=== PATIENT | male | born 1995 | race African-American/Black ===

== ENCOUNTER 2017-04-27 13:26 | Emergency (ER) | payer SELFPAY ==
[2017-04-27] MEDS ORDERED: Ketorolac Tromethamine 30 MG/ML VIAL ONE (13:45)
[2017-04-27] MEDS ORDERED: Ondansetron ODT 4 MG TAB ONE (13:46)
== END 2017-04-27 14:04 | disposition home or self-care (01) ==
LOC: NAV ERS 13:26
DX: G43.909 Migraine, unspecified, not intractable, without status migrainosus (principal); J45.909 Unspecified asthma, uncomplicated; Z77.22 Contact with and (suspected) exposure to environmental tobacco smoke (acute) (chronic)
CPT/HCPCS: 96372; J1885; Q0162

== ENCOUNTER 2018-07-24 12:56 | Emergency (ER) | payer SELFPAY ==
[2018-07-24 13:23] LABS: #Basophils 0.1 thou/uL (0.0-0.2); #Lymphocytes 1.1 thou/uL (1.20-3.40); #Monocytes 0.3 thou/uL (0.11-0.59); #Neutrophils 1.4 thou/uL (1.40-6.50); %Basophils 1.9 % (0.0-1.0); %Eosinophils 1.7 % (0.0-10.0); %Monocytes 8.9 % (0.0-10.0); %Neutrophils 49.5 % (42.0-75.0); Hemoglobin 14.2 g/dL (14.0-18.0); Mean Corpuscular HGB CONC 30.4 g/dL (32.0-36.0); Mean Corpuscular Hemoglobin 26.4 pg (27.0-31.0); Mean Corpuscular Volume 86.8 fL (78.0-98.0); Mean Platelet Volume 6.5 fL (7.4-10.4); Platelet Count 183 thou/uL (130-400); RBC Distribution Width 12.8 % (11.5-14.5); Red Blood Cell (RBC) Count 5.39 mill/uL (4.70-6.10); White Blood Cell (WBC) Count 2.9 thou/uL (4.8-10.8)
[2018-07-24 13:31] LABS: Amphetamine Not Detected (NotDetected); Barbiturates Screen Not Detected (NotDetected); Benzodiazepine Screen Not Detected (NotDetected); Cocaine Metabolite Screen Not Detected (NotDetected); Medtox Control Line Valid? VALID (VALID); Methadone Not Detected (NotDetected); Methamphetamine Not Detected (NotDetected); Opiate Screen Not Detected (NotDetected); Oxycodone Screen Not Detected (NotDetected); Phencyclidine (PCP) Not Detected (NotDetected); THC/Cannabinoid Screen Not Detected (NotDetected); Tricyclic Screen Not Detected (NotDetected)
[2018-07-24 13:48] LABS: ALT (SGPT) 12 U/L (8-55); AST (SGOT) 18 U/L (5-34); Albumin 4.4 g/dL (3.5-5.0); Alkaline Phosphatase 87 U/L (40-150); Anion Gap 15 mmol/L (10-20); BUN (Urea Nitrogen) 9 mg/dL (8.9-20.6); Bilirubin, Total 0.8 mg/dL (0.2-1.2); Calc. Creatinine Clearance 0 mL/min (70-130); Calcium 9.4 mg/dL (7.8-10.44); Carbon Dioxide 24 mmol/L (22-29); Chloride 106 mmol/L (98-107); Estimated GFR-MDRD Greater than 90; Globulin 2.8 g/dL (2.4-3.5); Glucose 89 mg/dL (70-105); Lipase 10 U/L (8-78); Potassium 3.8 mmol/L (3.5-5.1); Protein, Total 7.2 g/dL (6.0-8.3); Sodium 141 mmol/L (136-145)
--- NOTE | 2018-07-24 14:15 | RAD ---
CHEST 2 VIEWS: HISTORY: Uncontrollable shaking. COMPARISON: 04/02/2007, 12/10/2010. FINDINGS: Normal cardiac silhouette. Lungs and pleural spaces are clear. No pneumothorax or osseous abnormali ties. IMPRESSION: No acute cardiopulmonary process. POS: OFF
--- NOTE | 2018-07-24 14:32 | CT ---
BRAIN CT WITHOUT IV CONTRAST: HISTORY: Uncontrolled shaking. The patient does not remember what precipitated the event. FINDINGS: No focal mass or midline shift. No intra- or extraaxial hemorrhage. Sinuses and mastoids are clear of acute process. IMPRESSION: No significant acute intracranial process. No mass or bleed. POS: TPC
== END 2018-07-24 14:56 | disposition home or self-care (01) ==
LOC: NAV ERS 12:56
DX: R25.1 Tremor, unspecified (principal); F41.1 Generalized anxiety disorder; J45.909 Unspecified asthma, uncomplicated; Z77.22 Contact with and (suspected) exposure to environmental tobacco smoke (acute) (chronic)
CPT/HCPCS: 70450; 71046; 80053; 80306; 83690; 84443; 85025

== ENCOUNTER 2018-10-08 09:26 | Emergency (ER) | payer SELFPAY ==
[2018-10-08] MEDS ORDERED: Acetaminophen 500 MG TAB ONE (09:54)
== END 2018-10-08 10:00 | disposition home or self-care (01) ==
LOC: NAV ERS 09:26
DX: R51 Headache (principal); J45.909 Unspecified asthma, uncomplicated; F17.210 Nicotine dependence, cigarettes, uncomplicated
CPT/HCPCS: 99281

== ENCOUNTER 2018-12-11 11:00 | Emergency (ER) | payer SELFPAY ==
[2018-12-11] MEDS ORDERED: Sodium Chloride 0.9% 1,000 ML ONE (11:21)
[2018-12-11] MEDS ORDERED: Ketorolac Tromethamine 30 MG/ML VIAL ONE (11:21)
[2018-12-11] MEDS ORDERED: diphenhydrAMINE 50 MG/ML VIAL ONE (11:21)
[2018-12-11] MEDS ORDERED: Metoclopramide HCl 10 MG/2 ML VIAL ONE (11:21)
== END 2018-12-11 12:19 | disposition home or self-care (01) ==
LOC: NAV ERS 11:00
DX: R51 Headache (principal); J45.909 Unspecified asthma, uncomplicated; F17.210 Nicotine dependence, cigarettes, uncomplicated
CPT/HCPCS: 96361; 96374; 96375; J1200; J1885; J2765; J7050

== ENCOUNTER 2019-01-08 19:13 | Emergency (ER) | payer SELFPAY | END 2019-01-08 19:54 | disposition home or self-care (01) | LOC: NAV ERS 19:13 | DX: A60.01 Herpesviral infection of penis (principal); G43.909 Migraine, unspecified, not intractable, without status migrainosus; J45.909 Unspecified asthma, uncomplicated; F17.210 Nicotine dependence, cigarettes, uncomplicated | CPT/HCPCS: 99282 ==

== ENCOUNTER 2020-03-10 11:57 | Emergency (ER) | payer SELFPAY ==
[2020-03-10] MEDS ORDERED: Ondansetron ODT 4 MG TAB ONE (12:18)
--- NOTE | 2020-03-10 12:56 | CT ---
Exam: Head CT without contrast HISTORY: Headache. Nausea. Vomiting. Altered mental status. COMPARISON: 10/08/2019 FINDINGS: Hemorrhage: No intraparenchymal hemorrhage or extra-axial hematoma. Brain parenchyma: Cortical belcher-white matter differentiation is preserved. No mass effect or midline shift. Basilar cisterns are patent. Ventricular system: Ventricles and sulci are patent and symmetric. Calvarium: Intact. Sinuses and mastoid air cells: Adequate aeration. IMPRESSION: No acute intracranial process.
[2020-03-10 13:07] LABS: ALT (SGPT) 15 U/L (8-55); AST (SGOT) 29 U/L (5-34); Albumin 4.2 g/dL (3.5-5.0); Alkaline Phosphatase 74 U/L (40-110); Anion Gap 17 mmol/L (10-20); BUN (Urea Nitrogen) 9 mg/dL (8.9-20.6); Bilirubin, Total 0.5 mg/dL (0.2-1.2); Calc. Creatinine Clearance 0 mL/min (70-130); Calcium 8.6 mg/dL (7.8-10.44); Carbon Dioxide 21 mmol/L (22-29); Chloride 105 mmol/L (98-107); Globulin 2.8 g/dL (2.4-3.5); Glucose 129 mg/dL (70-105); Potassium 4.1 mmol/L (3.5-5.1); Sodium 139 mmol/L (136-145)
[2020-03-10 13:08] LABS: Mean Corpuscular HGB CONC 31.2 g/dL (32.0-36.0); Mean Corpuscular Hemoglobin 27.7 pg (27.0-31.0); Mean Corpuscular Volume 88.9 fL (78.0-98.0); Mean Platelet Volume 7.3 fL (7.4-10.4); Platelet Count 163 thou/uL (130-400); RBC Distribution Width 12.3 % (11.5-14.5); Red Blood Cell (RBC) Count 5.43 mill/uL (4.70-6.10); White Blood Cell (WBC) Count 8.3 thou/uL (4.8-10.8)
[2020-03-10 13:09] LABS: Acetaminophen Less than 6.0 mcg/mL (10.0-30.0); Alcohol Less than 10 mg/dL (Less than 10); Salicylate Less than 8.0 mg/dL (15.0-30.0)
[2020-03-10 13:32] LABS: Band 2 % (5-11); Eosinophils 1 % (0-10); Lymphocytes 7 % (21-51); MDiff Complete? YES; Monocytes 2 % (0-10); Neutrophil 88 % (42-75); Platelet Morphology Comment Appears Adequate
== END 2020-03-10 14:50 | disposition short-term general hospital (02) ==
LOC: NAV ERS 11:57
DX: R51.9 Headache, unspecified (principal); R41.82 Altered mental status, unspecified; R74.02 Elevation of levels of lactic acid dehydrogenase [LDH]; R11.2 Nausea with vomiting, unspecified
CPT/HCPCS: 36415; 70450; 80053; 80307; 82140; 83605; 84443; 84484; 85025; 86140; 94760; Q0162

== ENCOUNTER 2021-11-25 21:30 | Emergency (ER) | payer SELFPAY | END 2021-11-25 22:23 | disposition home or self-care (01) | LOC: NAV ERS 21:30 | DX: K52.9 Noninfective gastroenteritis and colitis, unspecified (principal); Z20.822 Contact with and (suspected) exposure to COVID-19 | CPT/HCPCS: 99284; U0003; U0005 ==

== ENCOUNTER 2022-08-30 08:12 | Emergency (ER) | payer SELFPAY | END 2022-08-30 09:00 | disposition home or self-care (01) | LOC: NAV ERS 08:12 | DX: R11.2 Nausea with vomiting, unspecified (principal) | CPT/HCPCS: 99283 ==

== ENCOUNTER 2024-04-08 18:00 | Emergency (ER) | payer OTHER, SELFPAY ==
[2024-04-08] MEDS ORDERED: Ondansetron ODT 4 MG TAB ONE (18:35)
[2024-04-08] MEDS ORDERED: Bacitracin 1 PK ONE (19:41)
[2024-04-08] MEDS ORDERED: Naproxen 500 MG TAB ONE (19:41)
[2024-04-08] MEDS ORDERED: Boostrix 0.5 ML (Tdap) VIAL (>/=7 yrs of age) ONE (19:42)
== END 2024-04-08 20:13 | disposition home or self-care (01) ==
LOC: NAV ERS 18:00
DX: S06.0X0A Concussion without loss of consciousness, initial encounter (principal); S00.83XA Contusion of other part of head, initial encounter; M54.2 Cervicalgia; Y04.0XXA Assault by unarmed brawl or fight, initial encounter
CPT/HCPCS: 70450; 72125; 90471; 90715; Q0162